=== PATIENT | female | born 1960 | race Caucasian/White ===

== ENCOUNTER → 2016-04-25 | Day surgery (SDC) | payer BC ==
[2016-04-16 10:24] VITALS: Ht 170.2 cm; Wt 72.7 kg
[~2016-04-25] VITALS: Ht 170.2 cm; Wt 72.7 kg
[~2016-04-25] MED LIST: FLUO20CA35 PO; LIDOCAINE HCL 2% 2 ML VIAL (20MG/ML) ONE; PROPOFOL IV EMULSION 10 MG/ML 20 ML VIAL IV ONE; SODIUM CHLORIDE 0.9% 500ML 500 ML IV ONE
[2016-04-25 10:08] VITALS: TEMP 36.8
--- NOTE | 2016-04-25 10:31 | Endo History and Physical ---
History & Physical Date of Service: Apr 25, 2016. Chief Complaint: screening Referring Physician: Dr. Caitlin Tejada History of Present Illness 55 yo CF who presents for screening colonoscopy. Past Surgical History Hx Cardiac Surgery: No Hx Internal Defibrillator: No Hx Pacemaker: No Hx Abdominal Surgery: No Hx of Implantable Prosthesis: No Hx Post-Op Nausea and Vomiting: No Hx Cancer Surgery: No Hx Thoracic Surgery: No Hx Orthopedic: No Hx Urinary Tract Surgery: No Family History None Social History Smoking Status: Current Some Day Smoker Hx Substance Use: No Hx Alcohol Use: Yes (OCCASSIONALLY) Allergies Coded Allergies: No Known Allergies (Verified , 04/25/16) Current Medications Reported Home Medications Medications Dose Route/Sig Max Daily Dose Days Date Category Prozac (Fluoxetine HCl) 20 Mg Cap 20 Mg PO QAM 04/16/16 Reported Vital Signs Weight (Kilograms): 72.73 Height (Feet): 5 Height (Inches): 7 Date Time Temp Pulse Resp B/P Pulse Ox O2 Delivery O2 Flow Rate FiO2 04/25/16 10:08 36.8 70 20 133/68 98 Room Air Physical Exam General Appearance: WD/WN, no apparent distress Respiratory/Chest: Auscultation: breath sounds normal Cardiovascular: Heart Auscultation: RRR Abdomen: Bowel Sounds: normal Inspection & Palpation: soft, non-distended, no tenderness, guarding & rebound Assessment and Plan Assessment: 55 yo CF who presents for screening colonoscopy. Plan: Proceed with colonoscopy.
--- NOTE | 2016-04-25 11:54 | GI REPORT ---
Procedure Date: 04/25/2016 11:29 AM Procedure: Colonoscopy Indications: Screening for colorectal malignant neoplasm Medicines: Monitored Anesthesia Care Complications: No immediate complications. Estimated Blood Loss: Estimated blood loss: none. Procedure: Pre-Anesthesia Assessment: - Prior to the procedure, a History and Physical was performed, and patient medications and allergies were reviewed. The patient's tolerance of previous anesthesia was also reviewed. The risks and benefits of the procedure and the sedation options and risks were discussed with the patient. All questions were answered, and informed consent was obtained. Prior Anticoagulants: The patient has taken no previous anticoagulant or antiplatelet agents. ASA Grade Assessment: II - A patient with mild systemic disease. After reviewing the risks and benefits, the patient was deemed in satisfactory condition to undergo the procedure. After I obtained informed consent, the scope was passed under direct vision. Throughout the procedure, the patient's blood pressure, pulse, and oxygen saturations were monitored continuously. The scope was introduced through the anus and advanced to the terminal ileum. The colonoscopy was performed without difficulty. The patient tolerated the procedure well. The quality of the bowel preparation was good. The terminal ileum, ileocecal valve, appendiceal orifice, and rectum were photographed. Findings: The colon (entire examined portion) appeared normal. Impression: - The entire examined colon is normal. - No specimens collected. Recommendation: - Resume previous diet. - Continue present medications. - Repeat colonoscopy in 10 years for surveillance. - Return to primary care physician as previously scheduled. Juan Mar DO 04/25/2016 11:53:49 AM This report has been signed electronically. Note Initiated On: 04/25/2016 11:29 AM
--- NOTE | 2016-04-25 11:56 | Discharge Instructions ---
Endoscopy Patient Instructions Date / Procedure(s) Performed Apr 25, 2016. Colonoscopy Allergy Information Coded Allergies: No Known Allergies (Verified , 04/25/16) Discharge Date / Findings Apr 25, 2016. Normal colonoscopy Medication Instructions OK to resume all medications today as prescribed Reported Home Medications Medications Dose Route/Sig Max Daily Dose Days Date Category Prozac (Fluoxetine HCl) 20 Mg Cap 20 Mg PO QAM 04/16/16 Reported Provider Instructions Activity Restrictions - No exercising or heavy lifting for 24 hours. - Do not drink alcohol the day of the procedure. - Do not drive a car or operate machinery until the day after the procedure. - Do not make any important decisions or sign important papers in 24 hours after the procedure. Following Day: - Return to full activity which may include returning to work/school. Diet Start your diet with liquids and light foods (jello, soup, juice, toast). Then eat your usual diet if not nauseated. Treatment For Common After Affects For mild abdominal pain, bloating, or excessive gas: - Rest - Eat lightly - Lie on right side Follow-Up Information Follow-up with Dr. Caitlin Tejada as scheduled Anesthesia Information What You Should Know You have had a procedure that required some medicine to reduce anxiety and discomfort. This treatment is called moderate sedation. After receiving the treatment, you may be sleepy, but you will be able to breathe on your own. The effects of the treatment may last for several hours. Follow these instructions along with Activity/Diet recommendations noted above: * Do NOT do anything where dizziness or clumsiness would be dangerous. * Rest quietly at home today, then you can be up and about tomorrow. * Have a responsible person stay with you the rest of today. * You may have had an I.V. today. If so, you may take the dressing off later today. Recommendations Call your doctor if: * Trouble breathing * Continuous vomiting for more than 24 hours * Temperature above 101 degrees * Severe abdominal pain or bloating * Pain not relieved by pain medicine ordered * There is increased drainage or redness from any incision * A large amount of rectal bleeding greater than 2-3 tablespoons. (If you had a polyp/s removed or have hemorrhoids, a small amount of blood - from the rectum is to be expected.) * You have any unanswered questions or concerns. IN THE EVENT OF A SERIOUS EMERGENCY, GO TO THE NEAREST EMERGENCY ROOM Your discharge instructions were prepared by provider Juan Mar. Patient Instructions Signature Page Halle Glover Patient (or Guardian) Signature/Date: I have read and understand the instructions given to me by my caregivers. Caregiver/RN/Doctor Signature/Date: The above-named patient and/or guardian has received patient instructions on this date. + Original Patient Signature Page (only) stays with chart. Please make copy for patient.
[2016-04-25 12:29] VITALS: BP 104/70; PULSE 56; O2SAT 100
--- NOTE | 2016-04-25 14:50 | Anesthesiology Progress Note ---
Anesthesia Post Op Note Date & Time Apr 25, 2016 at 14:50 Vital Signs Pain Intensity: 0 Vital Signs Past 12 Hours Date Time Temp Pulse Resp B/P Pulse Ox O2 Delivery O2 Flow Rate FiO2 04/25/16 12:29 56 20 104/70 100 Room Air 04/25/16 12:14 61 20 106/65 100 Room Air 04/25/16 11:59 55 20 98/57 98 Room Air 04/25/16 10:08 36.8 70 20 133/68 98 Room Air Notes Mental Status: alert / awake / arousable, participated in evaluation Pt Amnestic to Procedure: Yes Nausea / Vomiting: adequately controlled Pain: adequately controlled Airway Patency, RR, SpO2: stable & adequate BP & HR: stable & adequate Hydration State: stable & adequate Anesthetic Complications: no major complications apparent
== END | disposition home or self-care (01) ==
LOC: C.GI 09:40
PROVIDERS: ATTEND Internal Medicine
DX: Z12.11 Encounter for screening for malignant neoplasm of colon (principal); F17.210 Nicotine dependence, cigarettes, uncomplicated

== ENCOUNTER → 2016-09-21 | Outpatient (CLI) | payer BC ==
[~2016-09-21] MED LIST changes: -LIDOCAINE HCL 2% 2 ML VIAL (20MG/ML) ONE; -PROPOFOL IV EMULSION 10 MG/ML 20 ML VIAL IV ONE; -SODIUM CHLORIDE 0.9% 500ML 500 ML IV ONE
--- NOTE | 2016-09-21 13:47 | MAMMOGRAPHY REPORT ---
BILATERAL DIGITAL SCREENING MAMMOGRAM TOMOSYNTHESIS WITH CAD: 09/21/2016 CLINICAL HISTORY: Routine screening. Patient has no complaints. TECHNIQUE: Breast tomosynthesis in addition to standard 2D mammography was performed. Current study was also evaluated with a Computer Aided Detection (CAD) system. COMPARISON: Comparison is made to exam dated: 09/20/2015 mammogram - [facility]. Outside prior mammograms dated 06/17/2009, 06/15/2008. BREAST COMPOSITION: There are scattered areas of fibroglandular density in both breasts. FINDINGS: No suspicious masses, calcifications, or areas of architectural distortion are noted in ei ther breast. There has been no significant interval change compared to prior exams. IMPRESSION: ACR BI-RADS CATEGORY 1: NEGATIVE There is no mammographic evidence of malignancy. A 1 year screening mammogram is recommended. The pa tient will receive written notification of the results. Approximately 10% of breast cancers are not detected with mammography. A negative mammographic report should not delay biopsy if a clinically suggestive mass is present. Sheba Ren M.D. ah/:09/21/2016 12:02:22 Mash Processing Operator: Nohelia Card [facility] letter sent: Normal 1/2 BI-RADS Code: ACR BI-RADS Category 1: Negative
== END | disposition home or self-care (01) ==
LOC: C.MAMM 08:29
PROVIDERS: ATTEND Family Medicine
DX: Z12.31 Encounter for screening mammogram for malignant neoplasm of breast (principal)

== ENCOUNTER 2017-06-23 11:42 | Emergency (ER) | payer BC, OTHER ==
[~2017-06-23] VITALS: Ht 170.2 cm; Wt 78.0 kg
[2017-06-23 11:55] VITALS: TEMP 36.5; Ht 170.2 cm; Wt 78.0 kg
[2017-06-23] MEDS ORDERED: SODIUM CHLORIDE 0.9% 1000ML 2,000 ML IV STA (11:55)
[2017-06-23] MEDS ORDERED: KETOROLAC TROMETHAMINE 30 MG/ML VIAL IV STA (11:55)
[2017-06-23 12:02] LABS: BASO % 0.2 %; BASO ABS # 0.01 K/uL (0-0.2); EOS % 0.8 %; EOS ABS # 0.04 K/uL (0-0.5); HEMATOCRIT 41.4 % (37-47); IG# 0.01 K/uL (0.00-0.02); LYMPH % 21.2 %; LYMPH ABS # 1.03 K/uL (1.2-3.4); MEAN CELL VOLUME 92.6 fL (80-100); MEAN CORPUSCULAR HEMOGLOBIN 31.3 pg (25-34); MEAN CORPUSCULAR HGB CONC 33.8 g/dl (32-36); MEAN PLATELET VOLUME 10.4 fL (7.4-10.4); MONO % 4.3 %; MONO ABS # 0.21 K/uL (0.11-0.59); NEUT % 73.3 %; NEUT ABS # 3.56 K/uL (1.4-6.5); PLATELET COUNT 210 K/uL (130-400); RED CELL DISTRIBUTION WIDTH CV 12.9 % (11.5-14.5); RED CELL DISTRIBUTION WIDTH SD 43.7 fL (36.4-46.3); WHITE BLOOD COUNT 4.86 K/uL (4.8-10.8)
[2017-06-23] MEDS ORDERED: AMOX500C3 PO (12:03)
[2017-06-23 12:22] LABS: ALBUMIN 3.9 gm/dl (3.4-5.0); CALCIUM 8.9 mg/dl (8.5-10.1); CREATININE 0.78 mg/dl (0.60-1.20); POTASSIUM 3.9 mmol/L (3.5-5.1); TOTAL PROTEIN 7.2 gm/dl (6.4-8.2)
--- NOTE | 2017-06-23 12:41 | DIAGNOSTIC IMAGING REPORT ---
ABD/PELVIS NO IV OR ORAL CONT CLINICAL HISTORY: 57 years-old Female presenting with R flank pain, diarrhea. TECHNIQUE: Multidetector CT of the abdomen and pelvis was performed without the use of intravenous contrast. IV contrast: None. A dose lowering technique was used consistent with the principles of ALARA (as low as reasonably achievable). COMPARISON: 02/28/2015. CT DOSE (mGy.cm): The estimated cumulative dose is 354.74 mGy.cm. FINDINGS: Instrumentation Supervisor topogram: Unremarkable. Lung bases: Minimal basilar opacities, likely atelectasis. Normal heart size. No pericardial or pleural effusion. Liver: Normal morphology. Normal density. Biliary: No gross biliary ductal dilatation allowing for noncontrast technique. Normal gallbladder. Pancreas: Mild parenchymal atrophy. Spleen: Normal noncontrast appearance. Adrenal glands: Normal noncontrast appearance. 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 Mild right pelviectasis. No nephrolithiasis. No hydronephrosis. Tiny calcification along the course of the right ureter in the region of the right ureter that is poorly visualized in the pelvis (series 3 image 334). This is favored to represent a phlebolith rather than a ureteral calculus. Bladder: Incompletely evaluated secondary to underdistention. Pelvic organs: Normal noncontrast appearance. Bowel: Few scattered colonic diverticula. The appendix is normal. No bowel obstruction. Peritoneal cavity: No free fluid or intraperitoneal gas. Lymph nodes: No gross lymphadenopathy allowing for noncontrast technique. Vasculature: Normal noncontrast appearance. Abdominal wall: Normal. Musculoskeletal: Degenerative changes of the spine. IMPRESSION: 1. Punctate calcification in the right pelvis is favored to represent a phlebolith rather than a right ureteral calculus, although the right ureter is poorly visualized in this region. No nephrolithiasis. No hydronephrosis. Electronically signed by: Reinaldo Soliz M.D. 06/23/2017 12:40 PM Dictated Date/Time: 06/23/2017 12:35 PM
[2017-06-23] MEDS ORDERED: OXYC1TAB3 PO (13:10)
[2017-06-23] MEDS ORDERED: TAMS0.4C38 PO (13:10)
[2017-06-23] MEDS ORDERED: OXYCODONE IR HOME PACK PO ONE (13:15)
[2017-06-23 13:45] VITALS: BP 127/84; PULSE 61; O2SAT 99
[2017-06-23] MEDS ORDERED: TAMSULOSIN HCL 0.4 MG CAP PO ONE (13:45)
--- NOTE | 2017-06-23 17:55 | EMERGENCY ROOM VISIT NOTE ---
History Report prepared by Deepa: Elizabeth Quintana Under the Supervision of: Dr. Sharif Hawkins D.O. First contact with patient: 11:42 Chief Complaint: FLANK PAIN Stated Complaint: FLANK PAIN History of Present Illness The patient is a 57 year old female who presents to the Emergency Room with complaints of constant right lower back pain beginning around 7 pm last night. The patient denies any modifying or worsening factors. She states her pain does not radiate to her abdomen. At its worst, the patient rates her pain as a 10/ 10. No other exacerbating or remitting factors. Presently, she rates her pain as a 4/10 after taking a morphine. She notes some nausea and diarrhea. She had a colonoscopy yesterday which she attributes her diarrhea too. The patient states she felt normal for most of the day yesterday. Pt denies headache, change in vision, fevers, chest pain, shortness of breath, vomiting, diarrhea, pain with urination, and melena. Source of History: patient Onset: 7 pm last night Position: back (lower) Symptom Intensity: 4/10 Quality: other (pain) Timing: constant Associated Symptoms: + nausea, + back pain, No vomiting, No urinary symptoms Review of Systems See HPI for pertinent positives & negatives. A total of 10 systems reviewed and were otherwise negative. Past Medical & Surgical Medical Problems: (1) No significant active problems Family History Patient reports no known family medical history. Social History Smoking Status: Current Every Day Smoker Alcohol Use: occasionally Occupation Status: employed Current/Historical Medications Scheduled Amoxicillin (Amoxil), Unknown Dose PO BID Fluoxetine (Prozac), 40 MG PO QAM Tamsulosin Hcl (Flomax), 0.4 MG PO DAILY Scheduled PRN Oxycodone Immediate Rel Tab (Roxicodone Ir), 5 MG PO Q6H PRN for Pain Allergies Coded Allergies: No Known Allergies (Verified , 04/25/16) Physical Exam Vital Signs Date Time Temp Pulse Resp B/P (MAP) Pulse Ox O2 Delivery O2 Flow Rate FiO2 06/23/17 13:45 61 20 127/84 99 06/23/17 11:55 36.5 69 20 156/93 99 Room Air Physical Exam GENERAL: Sitting up in bed, slightly uncomfortable appearing, holding right lower back, no distress, non-toxic EYE EXAM: normal conjunctiva. OROPHARYNX: no exudate, no erythema, lips, buccal mucosa, and tongue normal and mucous membranes are moist NECK: supple, no nuchal rigidity, no adenopathy, non-tender LUNGS: Clear to auscultation. Normal chest wall mechanics HEART: no murmurs, S1 normal and S2 normal ABDOMEN: abdomen soft, non-tender, normo-active bowel sounds, no masses, no rebound or guarding. BACK: Back is symmetrical on inspection and there is no deformity, no midline tenderness, no CVA tenderness. SKIN: no rashes and no bruising UPPER EXTREMITIES: upper extremities are grossly normal. LOWER EXTREMITIES: No pitting edema. Flexion and extension of hip, knee, ankle and EHL 5./5 bilaterally gross sensation intact NEURO EXAM: Normal sensorium, cranial nerves II-XII grossly intact, normal speech, no gross weakness of arms, no gross weakness of legs. Medical Decision & Procedures ER Provider Diagnostic Interpretation: Radiology results as stated below per my review and the radiologist's interpretation: ABD/PELVIS NO IV OR ORAL CONT FINDINGS: Relationship Banker topogram: Unremarkable. Lung bases: Minimal basilar opacities, likely atelectasis. Normal heart size. No pericardial or pleural effusion. Liver: Normal morphology. Normal density. Biliary: No gross biliary ductal dilatation allowing for noncontrast technique. Normal gallbladder. Pancreas: Mild parenchymal atrophy. Spleen: Normal noncontrast appearance. Adrenal glands: Normal noncontrast appearance. 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 Mild right pelviectasis. No nephrolithiasis. No hydronephrosis. Tiny calcification along the course of the right ureter in the region of the right ureter that is poorly visualized in the pelvis (series 3 image 334). This is favored to represent a phlebolith rather than a ureteral calculus. Bladder: Incompletely evaluated secondary to underdistention. Pelvic organs: Normal noncontrast appearance. Bowel: Few scattered colonic diverticula. The appendix is normal. No bowel obstruction. Peritoneal cavity: No free fluid or intraperitoneal gas. Lymph nodes: No gross lymphadenopathy allowing for noncontrast technique. Vasculature: Normal noncontrast appearance. Abdominal wall: Normal. Musculoskeletal: Degenerative changes of the spine. IMPRESSION: 1. Punctate calcification in the right pelvis is favored to represent a phlebolith rather than a right ureteral calculus, although the right ureter is poorly visualized in this region. No nephrolithiasis. No hydronephrosis. Electronically signed by: Reinaldo Soliz M.D. Laboratory Results 06/23/17 11:22 Red Blood Count 4.47, Mean Corpuscular Volume 92.6, Mean Corpuscular Hemoglobin 31.3, Mean Corpuscular Hemoglobin Concent 33.8, Mean Platelet Volume 10.4, Neutrophils (%) (Auto) 73.3, Lymphocytes (%) (Auto) 21.2, Monocytes (%) (Auto) 4.3, Eosinophils (%) (Auto) 0.8, Basophils (%) (Auto) 0.2, Neutrophils # (Auto) 3.56, Lymphocytes # (Auto) 1.03, Monocytes # (Auto) 0.21, Eosinophils # (Auto) 0.04, Basophils # (Auto) 0.01 06/23/17 11:22 Test 06/23/17 11:22 06/23/17 12:00 White Blood Count 4.86 K/uL (4.8-10.8) Red Blood Count 4.47 M/uL (4.2-5.4) Hemoglobin 14.0 g/dL (12.0-16.0) Hematocrit 41.4 % (37-47) Mean Corpuscular Volume 92.6 fL (80-100) Mean Corpuscular Hemoglobin 31.3 pg (25-34) Mean Corpuscular Hemoglobin Concent 33.8 g/dl (32-36) Platelet Count 210 K/uL (130-400) Mean Platelet Volume 10.4 fL (7.4-10.4) Neutrophils (%) (Auto) 73.3 % Lymphocytes (%) (Auto) 21.2 % Monocytes (%) (Auto) 4.3 % Eosinophils (%) (Auto) 0.8 % Basophils (%) (Auto) 0.2 % Neutrophils # (Auto) 3.56 K/uL (1.4-6.5) Lymphocytes # (Auto) 1.03 K/uL (1.2-3.4) Monocytes # (Auto) 0.21 K/uL (0.11-0.59) Eosinophils # (Auto) 0.04 K/uL (0-0.5) Basophils # (Auto) 0.01 K/uL (0-0.2) RDW Standard Deviation 43.7 fL (36.4-46.3) RDW Coefficient of Variation 12.9 % (11.5-14.5) Immature Granulocyte % (Auto) 0.2 % Immature Granulocyte # (Auto) 0.01 K/uL (0.00-0.02) Anion Gap 8.0 mmol/L (3-11) Est Creatinine Clear Calc Drug Dose 87.7 ml/min Estimated GFR () 99.2 Estimated GFR (Non- 85.6 BUN/Creatinine Ratio 11.3 (10-20) Calcium Level 8.9 mg/dl (8.5-10.1) Total Bilirubin 0.5 mg/dl (0.2-1) Direct Bilirubin 0.1 mg/dl (0-0.2) Aspartate Amino Transf (AST/SGOT) 22 U/L (15-37) Alanine Aminotransferase (ALT/SGPT) 34 U/L (12-78) Alkaline Phosphatase 68 U/L (45-117) Total Protein 7.2 gm/dl (6.4-8.2) Albumin 3.9 gm/dl (3.4-5.0) Lipase 133 U/L (73-393) Urine Color YELLOW Urine Appearance CLEAR (CLEAR) Urine pH 7.0 (4.5-7.5) Urine Specific [place] 1.024 (1.000-1.030) Urine Protein NEG (NEG) Urine Glucose (UA) NEG (NEG) Urine Ketones TRACE (NEG) Urine Occult Blood TRACE (NEG) Urine Nitrite NEG (NEG) Urine Bilirubin NEG (NEG) Urine Urobilinogen NEG (NEG) Urine Leukocyte Esterase TRACE (NEG) Urine WBC (Auto) 1-5 /hpf (0-5) Urine RBC (Auto) 0-4 /hpf (0-4) Urine Hyaline Casts (Auto) 1-5 /lpf (0-5) Urine Epithelial Cells (Auto) 20-30 /lpf (0-5) Urine Bacteria (Auto) NEG (NEG) Urine Test NEG (NEG) Laboratory results per my review. Medications Administered Medications (Trade) Dose Ordered Sig/Henry Route Start Time Stop Time Status Last Admin Dose Admin Sodium Chloride 2,000 ml @ 999 mls/hr Q2H1M STAT IV 06/23/17 11:55 06/23/17 13:55 DC 06/23/17 12:08 999 MLS/HR Ketorolac Tromethamine (Toradol Inj) 30 mg NOW STAT IV 06/23/17 11:55 06/23/17 11:56 DC 06/23/17 12:09 30 MG Oxycodone HCl (Roxicodone Immediate Rel 5MG Home Pack) 1 homepack UD ONCE PO 06/23/17 13:15 06/23/17 13:16 DC 06/23/17 13:34 1 HOMEPACK Tamsulosin HCl (Flomax Cap) 0.4 mg NOW ONCE PO 06/23/17 13:45 06/23/17 13:46 DC 06/23/17 13:44 0.4 MG ED Course ED COURSE: Vital signs were reviewed and showed hypertensive The patients medical record was reviewed The above diagnostic studies were performed and reviewed. ED treatments and interventions as stated above. 1144: The patient was evaluated in room B11B. A complete history and physical examination was performed. 1155: Ordered Toradol Inj 30 mg IV, Sodium Chloride 2000 ml @ 999 mls/hr IV. 1253: I updated the patient on her test results. 1315: Ordered Oxycodone HCl 1 homepack PO. 1326: Upon reevaluation, the patient is resting comfortably.I discussed my findings with the patient and she understands and agrees with the treatment plan. Based on the patients age, coexisting illnesses, exam and lab findings the decision to treat as an outpatient was made. The patient remained stable while under my care. The patient appeared well at the time of discharge. Medical Decision Differential diagnoses includes but is not limited to gastritis, peptic ulcer disease, GERD, gallbladder disease, pancreatitis, small bowel obstruction, acute coronary syndrome, pericarditis, ischemic bowel, irritable bowel disease, irritable bowel syndrome, appendicitis, diverticulitis, malignancy, hernia, urinary tract infection, torsion, /ectopic (if female), perforation, trauma, infectious. Patient is a 57-year-old female who presents to ER for severe right flank pain. Patient notes that this feels like this is worse than labor. She was given IV morphine and Zofran prior to arrival. Patient is very comfortable upon presentation. CT Noncon was performed as there is hematuria for possible stone which showed questionable stone versus fecalith in the distal ureter. With her hematuria and presentation I do favor this consistent with a stone. BMP along with LFTs, bilirubin lipase is normal. UA without signs of infection. was negative. She was updated and discharged with Flomax and OxyIR as I do favor this is likely secondary to a renal stone. Discussed with Pt concerning signs and symptoms to watch out for. Pt was instructed to follow up with their PCP and discussed with the patient their option to return to the ED at anytime for persistent or worsening symptoms. The appropriate anticipatory guidance and out-patient management, including indications for return to the emergency department, were explained at length to the patient and understood. Medication Reconcilliation Current Medication List: was personally reviewed by me Blood Pressure Screening Patient's blood pressure: Elevated blood pressure Blood pressure disposition: Elevated BP felt to be situational Impression Primary Impression: Right flank pain Scribe Attestation The scribe's documentation has been prepared under my direction and personally reviewed by me in its entirety. I confirm that the note above accurately reflects all work, treatment, procedures, and medical decision making performed by me. Departure Information Dispostion Home / Self-Care Prescriptions Tamsulosin Hcl (FLOMAX) 0.4 Mg Cap 0.4 MG PO DAILY, #10 CAP Prov: Sharif Hawkins, DO 06/23/17 Oxycodone Immediate Rel Tab (ROXICODONE IR) 5 Mg Tab 5 MG PO Q6H Y for Pain, #10 TAB Prov: Sharif Hawkins, DO 06/23/17 Referrals Caitlin Tejada MD (PCP) Forms HOME CARE DOCUMENTATION FORM, IMPORTANT VISIT INFORMATION Patient Instructions ED Flank Pain Uncertain Cause, My [facility] Additional Instructions Please follow up with your primary care doctor with in the next 24 hours. Any worsening of your symptoms, please return to the ED immediately. This includes any fevers greater than 100.4, worsening pain, chest pain, shortness breath, persistent nausea, vomiting, unable to eat or drink, or any other concerning signs or symptoms from your standpoint. You were given medications during this visit that will inhibit your ability to drive, operate machinery and work. Please do NOT drive, operate machinery or work for the next 12hrs. You were also given a prescription for a narcotic. While taking this medication you should also not drive, operate machinery and or work. CT shows a possible distal right ureteral stone. Please take the narcotics as prescribed and follow-up with your PCP. Any fevers greater than 100.4 you need to return as stated above immediately to the ER.
== END 2017-06-23 13:45 | disposition home or self-care (01) ==
LOC: EDBD 11:42 → C.EDB 11:43
DX: R10.9 Unspecified abdominal pain (principal); M54.5 Low back pain; R11.0 Nausea; R19.7 Diarrhea, unspecified; Z79.899 Other long term (current) drug therapy; F17.200 Nicotine dependence, unspecified, uncomplicated